=== PATIENT | female | born 1965 | race Native Hawaiian/Other Pacific Islander ===

== ENCOUNTER 2018-03-07 11:43 | Outpatient (CLI) | payer BC | END 2018-03-07 21:19 | disposition home or self-care (01) | LOC: RAD 11:43 | DX: M25.521 Pain in right elbow (principal) ==

== ENCOUNTER 2018-09-09 14:53 | Outpatient (CLI) | payer BC | END 2018-09-09 20:04 | disposition home or self-care (01) | LOC: MAMMO 14:53 | DX: Z12.31 Encounter for screening mammogram for malignant neoplasm of breast (principal) ==

== ENCOUNTER → 2020-09-27 | Outpatient (CLI) | payer BC, OTHER | LOC: INF 15:49 | PROVIDERS: ATTEND Internal Medicine | DX: Z23 Encounter for immunization (principal) | CPT/HCPCS: 96372 ==

== ENCOUNTER 2020-10-21 09:09 | Outpatient (CLI) | payer BC, OTHER | END 2020-10-21 23:59 | disposition home or self-care (01) | LOC: INF 09:09 | PROVIDERS: ATTEND Internal Medicine | DX: Z23 Encounter for immunization (principal) | CPT/HCPCS: 96372 ==

== ENCOUNTER 2023-01-11 08:12 | Outpatient (CLI) | payer BC | END 2023-01-11 18:58 | disposition home or self-care (01) | LOC: NM 08:12 → RAD 08:12 → NM 08:30 | PROVIDERS: ATTEND Internal Medicine | DX: E05.80 Other thyrotoxicosis without thyrotoxic crisis or storm (principal) | CPT/HCPCS: A9516 ==